=== PATIENT | female | born 1940 | race Caucasian/White ===

== ENCOUNTER 2019-08-09 11:35 | Inpatient (IN) | payer MEDICARE, MEDICAID, SELFPAY ==
--- NOTE | 2019-08-07 17:51 | PCM.HP.BLA ---
History and Physical Date of Admission: 08/09/19 HISTORY AND PHYSICAL ? Brisa Hall 1940 ? ? REFERRING PHYSICIAN: Mercedes Lee MD ? CHIEF COMPLAINT: pleurex discussion ? 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 Brisa underwent paracentesis earlier this week and the fluid has already recurred. Dr. Lee wished us to semi-urgently place a Pleurx catheter to manage her pleural effusion so the patient can start her palliative chemotherapy. ? The patient has a history of hypertension, coronary artery disease, she had a and stenting in November 2018 for which she is being treated medically. She has a history of congestive heart failure. Ejection fraction of 40%. She has obstructive sleep apnea chronic renal disease COPD and TIAs. She last took her aspirin and Plavix last night. The patient has significant bruising of her arms and legs. ? The patient and her family are concerned that she is going to become increasingly short of breath before the time for Pleurx catheter placement this coming Thursday. ? The patient has an order and has CPAP at home but she does not use this regularly because it makes her uncomfortable. She occasionally has to be admitted to the hospital for C Pap treatments when she has worsening shortness of breath/dyspnea. ? ? ? PAST?MEDICAL?HISTORY ? CKD (chronic kidney disease) ? ? COPD (chronic obstructive pulmonary disease) (HCC) ? ? Coronary artery disease ? ? Heart failure (HCC) ? ? Hyperlipidemia ? ? Hypertension ? ? JAYA (obstructive sleep apnea) ? ? Small cell lung cancer (HCC) ? ? TIA (transient ischemic attack) ? ? ? PAST?SURGICAL?HISTORY ? HYSTERECTOMY HX ? ? ? REMOVAL GALLBLADDER ? ? ? REMV CATARACT EXTRACAP,INSERT LENS Right 08/29/15 ? Cataract Extraction with PC IOL with growth removal lower lid ? ? ? CURRENT?MEDICATIONS ? mupirocin (BACTROBAN) 2% oint Use 0.5 g in the nose twice daily. 3 g 1 ? guaiFENesin (MUCINEX) 1,200 mg Ta12 Take 1 tablet by mouth every 12 hours. 60 tablet 2 ? ondansetron (ZOFRAN) 8 mg tablet Take 1 tablet by mouth every 8 hours as needed. 90 tablet 0 ? metoprolol succinate ER (TOPROL XL) 25 mg 24 hr tablet Take 1 tablet by mouth once daily. 30 tablet 2 ? senna-docusate (SENNA-S) 8.6-50 mg per tablet Take 1 tablet by mouth twice daily as needed for Constipation. 30 tablet 1 ? pantoprazole DR (PROTONIX) 20 mg tablet Take 20 mg by mouth once daily. ? ? ? ipratropium-albuterol (DUONEB) 0.5 mg-3 mg(2.5 mg base)/3 mL nebu Inhale 3 mL as instructed. ? ? ? atorvastatin (LIPITOR) 40 mg tablet once daily. ? ? ? DULoxetine (CYMBALTA) 30 mg capsule ? ALLERGIES: Codeine ? PERSONAL HISTORY: SOCIAL?HISTORY Social History Socioeconomic History Marital status: Single Spouse name: Not on file Number of children: Not on file Years of education: Not on file Highest education level: Not on file Occupational History Not on file Social Needs Financial resource strain: Not on file Food insecurity: Worry: Not on file Inability: Not on file Transportation needs: Medical: Not on file Non-medical: Not on file Tobacco Use Smoking status: Former Smoker Packs/day: 1.00 Years: 50.00 Pack years: 50 Types: Cigarettes Quit date: 04/26/2015 Years since quittin.2 Smokeless tobacco: Never Used Substance and Sexual Activity Alcohol use: Not Currently Drug use: Never Sexual activity: Not on file Lifestyle Physical activity: Days per week: Not on file Minutes per session: Not on file Stress: Not on file Relationships Social connections: Talks on phone: Not on file Gets together: Not on file Attends shinto service: Not on file Active member of club or organization: Not on file Attends meetings of clubs or organizations: Not on file Relationship status: Not on file Intimate partner violence: Fear of current or ex partner: Not on file Emotionally abused: Not on file Physically abused: Not on file Forced sexual activity: Not on file Other Topics Concerns: Not on file Social History Narrative Not on file ? FAMILY HISTORY: ? other (epilepsy) Mother ? ? Heart disease Sister ? ? Heart disease Brother ? ? COPD Sister ? ? Heart disease Sister ? ? Heart disease Brother ? ? other (Hep C) Brother ? ? No Ocular Disease No Family History ? ? ? REVIEW OF SYMPTOMS: The review of systems data was entered by the nurse and reviewed by me ? REVIEW OF SYSTEMS: General: The patient denies fatigue, denies weight loss, denies weight gain, denies feeling hot, and feelings of cold. Eyes: The patient denies glaucoma, denies eye injury/surgery, denies glasses or contacts. Ear/Nose/Throat: The patient denies allergies, denies hayfever, denies ear infections, and denies bloody noses. Cardiovascular: The patient denies chest pain, NOTES heart disease, denies high blood pressure, denies high cholesterol, and denies poor circulation. Respiratory: The patient denies tuberculosis, denies pneumonia, denies frequent cough, NOTES shortness of breath, and denies coughing up blood. Gastrointestinal: The patient denies difficulty swallowing, denies acid reflux, denies ulcers, denies jaundice/hepatitis, denies gallbladder problems, denies vomiting, denies black or tarry stools, denies hemorrhoids, denies bleeding from rectum, denies diverticulitis, denies constipation, denies diarrhea, denies loss of stool control, and denies hernias. Kidney/Bladder: The patient denies kidney stones, denies urine infections, and denies bloody urine. Skin: The patient denies a history of skin cancer, denies bleeding/changing moles, and denies a history of skin rash. Neurologic: The patient denies a history of epilepsy/convulsions, denies headaches, denies head/spinal injuries, and denies stroke/TIA. Psychiatric: The patient denies psychiatric medications, denies depression, and denies voices. Endocrine: The patient denies thyroid disorders, denies diabetes, and denies hormonal problems. Hematologic: The patient denies a history of bruising, denies bleeding, and denies anemia. Infections: The patient denies a history of measles and mumps, denies rheumatic fever, and denies sexually transmitted diseases. Musculoskeletal: The patient denies back pain/injury, denies back problems, denies sciatica, denies knee/foot trouble, denies arthritis, or denies gout. PHYSICAL EXAMINATION: ? General: The patient is 79 year old female, well nourished, well hydrated in no acute distress. The patient is oriented to time, place, and person. ? VITALS: Blood pressure 114/61, pulse 84, temperature 37.1 ?C (98.8 ?F), temperature source Temporal Artery, height 165.1 cm (5' 5), weight 69.9 kg (154 lb), SpO2 93 %. Body mass index is 25.63 kg/m?. ? HEENT: Normal cephalic, ataumatic, pupils are equally round, sclera are anicteric, mucous membranes are moist, oropharynx is clear. Neck has no masses, asymmetry or lymphadenopathy. Thyroid is unremarkable. ? Respiratory: Right lower lung field decreased to auscultation and percussion. Otherwise wheezes throughout. Normal respiratory excursion and pattern. ? Cardiac: Examination is regular rate and rhythm. ? Abdominal exam: Soft, nontender, with no palpable masses. No hepatosplenomegaly. No palpable hernias. ? Rectal exam: exam deferred ? Extremities: no clubbing, cyanosis or edema. No adenopathy. ? Other: ? ? LABORATORY VALUES: As Noted ? RADIOLOGIC STUDIES: As Noted ? IMPRESSION: Right small cell lung cancer,, recurrent right pleural effusion ? PLAN: Discussed with the patient and Dr. Lee that I will be out of town for 2 weeks but understand the urgency of catheter placement. I partner, Dr. Desai will plan to perform a tunnelled right pleural catheter or Pleurex catheter placement. Dr. Lee has also requested portacath placement for chemotherapy. The planned surgical procedure was discussed extensively with the patient. The risks, benefits, anticipated outcomes and possible complications were mentioned. My staff has also explained the procedure in understandable terms and the patient was given the option to take printed material concerning the planned procedure. The patient had the opportunity to ask questions concerning the planned procedure. The patient freely consents to the planned procedure. ? Given the patient's medical comorbidities but significant bruising. I feel of be optimal to wait until Thursday for pleural catheter placement. If the patient's shortness of breath worsens she should present to the hospital for support until the catheter can be safely placed. ? Anticipated Surgical Procedure/ CPT Code: 09362 - Insertion of Tunnelled Pleural Catheter - Right and 54296 - Ultrasound Guidance for Needle Placement Also requested by Dr. Lee, placement of portacath for chemotherapy. ? Anticipated Anesthetic: MAC with local ? Patient weight: Blood pressure 114/61, pulse 84, temperature 37.1 ?C (98.8 ?F), temperature source Temporal Artery, height 165.1 cm (5' 5), weight 69.9 kg (154 lb), SpO2 93 %. BMI: Body mass index is 25.63 kg/m?. ? Planned antibiotic: Ancef 2gm IVPB vaccines solutions specialist to OR ? SCDs needed - Yes ? Circulation Analyst Needed - No ? Diagnoses: (J90) Pleural effusion (primary encounter diagnosis) ? Jake Turcios MD
[2019-08-09] VITALS (22 sets, daily range): BP systolic 93–138; BP diastolic 49–85; PULSE 78–95; RESP 16–24; TEMP 36–36.7; O2SAT 90–100; BMI 25.6; BMI 26.8
[2019-08-09] MEDS: Cefazolin 2 GM in 0.9% Normal Saline 100 ML IV (08:06)
--- NOTE | 2019-08-09 09:36 | PCM.OPRPT ---
Report of Operation Date of Procedure: 08/09/19 Pre-Operative Diagnosis: metastatic lung cancer, need for IV access Post-Operative Diagnosis: same Surgery/Procedure Performed:: placement of permanent indwelling tunnelled catheter in the right subclavian vein with subcutaneous port and placement right sided PleurX catheter Description of Surgical Findings:: normal right subclavian vein anatomy to SVC, right pleural effusion tapping machine operator automatic: Tamia Wooten Type of Anesthesia:: Local MAC Anesthesiologist: Jacques Cid Specimen's removed: pleural effusion - right Estimated Blood Loss (mL): 10 ml Fluids Replaced: 1000 ml RL Description of Procedure: After informed consent was given, the patient was brought to the Operating Room. Appropriate time out protocol was followed. She was then placed in the supine position. IV conscious sedation was then administered by the anesthesia provider. After proper landmarks were ascertained, the skin at the upper right chest area was then infiltrated with 1% xylocaine with epinephrine. A needle trocar was then inserted into the right subclavian vein and there was good aspiration of venous blood. A wire was then threaded into the needle trocar and this was visualized under fluoroscopy to ensure that the wire was in the right subclavian vein. Once this was done, then the needle trocar was removed. A small skin dory was made with an 11 blade knife at the wire entrance site. The dilator with the introducer sheath attached was then placed over the wire into the right subclavian vein via the Seldinger technique and this was visualized under fluoroscopy. The dilator and sheath were in proper position as visualized by fluoroscopy. The wire and dilator were then removed. The catheter was then threaded into the introducer sheath and was positioned with its tip at the junction of the superior vena cava and the right atrium as visualized under fluoroscopy. The catheter was flushed with a heparin saline mixture prior to placement. A subcutaneous pocket was then created caudad to the catheter insertion site. A transverse skin incision was made after the skin and subcutaneous tissues were infiltrated with local anesthetic. Blunt dissection was then used to create a space large enough for placement of the subcutaneous port. Hemostasis was carefully controlled with electrocautery. The port was sutured to the subcutaneous fascia using vicryl suture at three sites. The catheter was then tunneled into the subcutaneous pocket. The excess catheter was transected. The catheter was then attached to the subcutaneous port using mail carrier and clerk?s guidelines. The port was then placed in the subcutaneous pocket and the sutures were ligated. The subdermal incisional sites were reapproximated with interrupted vicryl suture. The skin was reapproximated with monocryl suture in a subcuticular fashion. Cavilon and steristrips were used for reinforcement of the skin closure and a sterile opsite dressing was applied. The patient was placed in the slightly head up recumbent position. The patient?s right torso was then prepped with a separate surgical skin preparation and sterile surgical drapes were placed. The US transducer was brought into the sterile field. Real time US images were obtained to locate the pleural effusion. Landmarks were also determined. Sites were chosen for insertion of the catheter into the chest cavity and the exit site of the catheter and these were marked out on the patient's skin. The skin and subcutaneous tissues in and around the sites were then infiltrated with 1% xylocaine with epinephrine. A skin incision was then made with a 15 blade scalpel at both sites - < 1 cm. The needle trocar was then directed into the pleural cavity under US guidance and aspiration was done. Once there was good aspiration of pleural fluid (clear yellow) then the needle was removed and a wire was threaded through the catheter. The tunnelling device was used to bring the catheter via the exit site and out through the chest insertion site. It was placed so that the cuff was about 1 cm from the wound opening. The dilator was then threaded over the wire into the pleural cavity, then the dilator with the introducer sheath was threaded over the wire. The wire and dilator was then removed and finger placed over the introducer opening. There was excess catheter that was transected. The catheter was then inserted into the pleural cavity via the introducer sheath and placed so that the catheter openings were well beyond the entrance site. The catheter was sutured to the exit site using 3-0 nylon suture. The skin incisions were closed with subdermal 4-0 monocryl. The extension tubing with three way stop-cock was attached to the catheter and about 1100 ml of clear yellow fluid was removed from the left pleural cavity. The catheter site was then covered with a sterile dressing and a closing device was placed at the end of the pleural cavity. The patient tolerated the procedure well and was brought to the Recovery Room in stable condition. Grafts/Implants Used: [employer] lot [id number] - Complications none noted - Admit VTE Documentation VTE Present on Admission: Yes VTE Mechan Device Prophylaxis: SCD's
--- NOTE | 2019-08-09 10:08 | RAD_ITS ---
STUDY: X-RAY CHEST REASON FOR EXAM: Female, 79 years old. Port placement. TECHNIQUE: Single AP portable view of the chest. COMPARISON: None. FINDINGS: A right-sided jhon catheter has been placed. The tip is in the right atrium. There is evidence of an approximately 10-15% right pneumothorax. A catheter is seen overlying the right upper quadrant. Small right pleural effusion with underlying right basilar atelectasis. Normal size heart. Normal mediastinum and shahida. Normal visualized pulmonary arteries. Normal visualized aortic arch and descending thoracic aorta. Normal visualized thoracic spine. Normal visualized ribs, clavicles, and shoulders. There is no demonstrated abnormality of the visualized soft tissue structures of the upper abdomen. RAD/CXR for Line Placement IMPRESSION: 10-15% right pneumothorax. The tip of the portacatheter is in the right atrium. Small right pleural effusion with underlying basilar atelectasis. Electronically Signed: Kannan Hall, at 10:32 EDT , Service support ,
--- NOTE | 2019-08-09 11:23 | RAD_ITS ---
STUDY: X-RAY CHEST REASON FOR EXAM: Female, 79 years old. Chest tube placement for pneumothorax. TECHNIQUE: Single AP portable view of the chest. COMPARISON: Comparison is made with prior examination done earlier in the day at 10:13 AM. FINDINGS: A chest tube is seen with the tip in the lateral aspect of the right right upper quadrant/right lung base. Stable appearance of the right pneumothorax. The remainder the examination is unchanged. RAD/Chest 1 View (Portable) IMPRESSION: Stable appearance of the right pneumothorax. Electronically Signed: Kannan Hall, at 13:06 EDT , Service support ,
--- NOTE | 2019-08-09 12:43 | EKG12_ITS ---
Test Reason : PALPS Blood Pressure : / mmHG Vent. Rate : 082 BPM Atrial Rate : 082 BPM P-R Int : 188 ms QRS Dur : 116 ms QT Int : 376 ms P-R-T Axes : 031 -25 171 degrees QTc Int : 439 ms Normal sinus rhythm with occasional premature ectopic complexes Left bundle branch block Abnormal ECG No previous ECGs available Confirmed by RAYSHAWN AUGUSTINE, DEEP ([id number]), non linear editor TIFFANIE ROBISON ([id number]) on 08/15/2019 1:16:30 PM Referred By: Lucy Desai Confirmed By:DEEP TABARES MD
[2019-08-09] MEDS: HYDROcodone Bitartrate/Apap 5/325 Tablet PO ×2 (13:30→22:01)
--- NOTE | 2019-08-09 16:22 | PCM.PN.BLA ---
Progress Note Patient noted to have postoperative pneumothorax on CXR in PACU. PleurX catheter placed to 20 cm water suction pleural drainage system, repeat CXRs ordered Patient also complaint of chest pain EKG changes were noted Will admit patient for observation hospitalist service consulted for EKG changes (spoke to Dr. Kim) STROKE Vital Signs/Narrative: Vital Signs Temp Pulse Resp BP Pulse Ox 08/09/19 13:56 97.8 F 78 18 138/62 H 100 08/09/19 13:18 83
--- NOTE | 2019-08-09 16:30 | RAD_ITS ---
STUDY: X-RAY CHEST REASON FOR EXAM: Female, 79 years old. Pneumothorax. TECHNIQUE: Single AP portable view of the chest. COMPARISON: Comparison is made with prior examination done earlier today at 11:26 AM. FINDINGS: No right-sided pneumothorax is seen at this time. The remainder of the examination is unchanged. RAD/Chest 1 View (Portable) IMPRESSION: No pneumothorax is seen at this time. Electronically Signed: Kannan Hall, at 15:31 EDT , Service support ,
--- NOTE | 2019-08-09 17:02 | PN_ITS ---
Subjective: 39-year-old female presenting for a port placement because of her small cell lung cancer diagnosis. She underwent the procedure today and unfortunately postoperatively had a pneumothorax on chest x-ray and had a Pleurx catheter placed to manage the pneumothorax. At that time she started complaining of right-sided chest pain so an EKG was obtained that showed T wave inversions in the lateral leads and incomplete left bundle branch block. Unfortunately we had no previous records in our system of her and therefore she was admitted for a chest pain. Initial troponin was negative and we were able to get in touch with the primary care physician's office who was able to send over records. The left bundle branch block was there in the past though there was no mention of T wave inversions and I could not actually see the EKG image. Left-sided chest pain or pressure and denies any shortness of breath. She denied any chest pain with exertion prior to coming in for the procedure today. Vitals/I&O's: Vital Signs Temp Pulse Resp BP Pulse Ox 97.8 F 78 18 138/62 H 100 08/09/19 13:56 08/09/19 13:56 08/09/19 13:56 08/09/19 13:56 08/09/19 13:56 Oxygen Flow Rate (L/min) 2 Oxygen Delivery Method Nasal Cannula Weight: 161 lb 4.8 oz Body Mass Index (BMI) 26.8 Intake and Output for Last 24 Hours 08/07/19 08/08/19 08/09/19 23:59 23:59 23:59 Output Total 1999 Balance -1999 General: Alert, Oriented x3, Cooperative, No apparent distress HEENT: Atraumatic, PERRLA, EOMI, Normocephalic Oral: Moist Mucosa Neck: Supple, No JVD Lungs: Clear to auscultation, Normal air movement, No rhonchi, No wheeze, No rales, - - Port is present on the right side of the chest as is the Pleurx catheter Cardiovascular: Regular rate, Regular Rhythm, Normal S1, Normal S2, No murmurs Abdomen: Soft, Non Tender, Non-Distended, No Hepato-splenomegaly Extremities: No edema, Capillary Refill Less than 3 Seconds Skin: No rashes, No breakdown Musculoskeletal: Tenderness - To the right foot from a likely gout flare Neurological: Neuro grossly intact, Sensory exam intact to light touch and pain Psych/Mental Status: Normal Affect, Appropriate Laboratory Results 08/09/19 11:42: Troponin I < 0.015 08/09/19 14:53: Troponin I < 0.015 Current Medications Hydrocodone Bitart/Acetaminophen ([place] 5mg-325mg) 1 tablet PO Q4H PRN PRN PRN Reason: Pain Score 1-5/10 Last Admin: 08/09/19 13:30 Dose: 1 tablet Documented by: Atorvastatin Calcium (Lipitor) 40 mg PO QHS JULIO Duloxetine HCl (Cymbalta) 30 mg PO DAILY ON LICENSE OF [facility] Lactated Ringer's () 1,000 mls @ 75 mls/hr IV .[id number] JULIO Metoprolol Succinate (Toprol Xl (Beta Luis)) 25 mg PO DAILY JULIO Morphine Sulfate () 4 mg IV Q1H PRN PRN PRN Reason: Pain Score 6-10/10 Ondansetron HCl (Zofran) 4 mg IV Q8H PRN PRN PRN Reason: NAUSEA/VOMITING Pantoprazole Sodium (Protonix) 20 mg PO DAILY ON LICENSE OF [facility] Sodium Chloride () 250 ml IV UD PRN PRN Reason: Hypotension STROKE Vital Signs/Narrative: Vital Signs Temp Pulse Resp BP Pulse Ox 08/09/19 13:56 97.8 F 78 18 138/62 H 100 08/09/19 13:18 83 Medical Necessity - Tobacco Use Smoking Status: Former smoker Assessment/Plan 1. Chest pain with EKG changes/CAD status post NSTEMI in November 2018/chronic systolic heart failure/HTN/HLD -Based on the description from the EKG sent over from the PCP there is no significant change in her baseline EKG. She is not complaining of left-sided chest pain or significant shortness of breath -We will obtain serial troponins and if there is no elevation, she is likely stable for discharge from a cardiac standpoint -We will hold her aspirin and Plavix until cleared by surgery to continue -Can restart her Lipitor, Lasix, isosorbide mononitrate, lisinopril, metoprolol and Aldactone 2. COPD/small cell lung cancer/right-sided pneumothorax -Currently not in a COPD exacerbation and can resume her home inhalers -She is having her chemotherapy done at [facility] and she has had treatment with carboplatin and etoposide -She underwent the port placement today with an unfortunate resultant pneumothorax, there is a Pleur-evac in place -Management per primary for her port and pneumothorax -She is on home oxygen 3. History of a TIA/CVA -Continue with aspirin and Plavix when okay by surgery -Continue with statin 4. CKD 3 -Baseline creatinine is 1.5 -Monitor 5. Gout -She has been on prednisone previously but she states that lidocaine patches significantly help -We will provide lidocaine patch for pain and if necessary start prednisone -The right foot did not appear swollen, red, or significantly tender on palpation 6. Anxiety/depression -Continue with Xanax as needed -Stable DVT: SCDs Code Visit OBSV E&M: 91607 Subsequent observation care L3
[2019-08-09] MEDS: Furosemide 20 MG Tablet PO (18:41)
[2019-08-09] MEDS: Lactated Ringers 1,000 ML 75 ML IV (18:42)
[2019-08-09] MEDS: Lidocaine 5% Patch 1 PATCH TOPICAL (21:57)
[2019-08-09] MEDS: Atorvastatin Calcium 40 MG Tablet PO (21:57)
[2019-08-09] MEDS: Isosorbide Mononitrate 60 MG Tablet PO (21:57)
[2019-08-09] MEDS: Albuterol 2.5 MG/3 ML VIAL.NEB. INHALATION (22:08)
[2019-08-10] VITALS (22 sets, daily range): BP systolic 94–123; BP diastolic 41–73; PULSE 50–99; RESP 15–20; TEMP 36.7–37.2; O2SAT 92–96
[2019-08-10] MEDS: Morphine 4 MG/ML Syringe IV (00:30)
[2019-08-10] MEDS: HYDROcodone Bitartrate/Apap 5/325 Tablet PO ×4 (02:09→16:57)
[2019-08-10 06:06] LABS: Absolute Lymphocyte Count 1.55 X10^3/uL (0.83-4.51); Absolute Neutrophil Count 7.4 X10^3/uL (2.0-7.7); Basophil# 0.05 X10^3/uL; Basophil% 0.5 % (0-1); Eosinophil# 0.03 X10^3/uL; Eosinophils% 0.3 % (0-5); Hemoglobin 6.9 g/dL (12.0-15.0); Lymphocyte # 1.55 X10^3/ul (4.0); Lymphocyte % 14.8 % (19-41); Mean Corp Hgb Conc 31.4 g/dL (32-36); Mean Corpuscular Hgb 30.3 pg (27.0-32.0); Mean Corpuscular Volume 96.5 fL (81-99); Mean Platelet Vol. 8.5 fl (6.2-12.0); Monocyte# 0.92 X10^3/uL; Monocyte% 8.8 % (0-10); NRBC Flagged by Analyzer 0 % (0-5); Neutrophil # 7.38 X10^3/uL (2.7-7.7); Neutrophil % 70.6 % (47-70); Platelet Count 428 K/mm3 (150-450); RBC Distribution Width CV 15.6 % (11.6-14.6); RBC Distribution Width SD 53.2 fl (35.1-43.9); Red Blood Count 2.28 M/mm3 (4.2-5.4); White Blood Count 10.5 K/mm3 (4.4-11.0)
[2019-08-10 06:34] LABS: Anion Gap 4 (5-15); BUN 16 mg/dL (7-18); BUN/Creat Ratio 16.6 RATIO (10-20); Calcium,Total 8.2 mg/dL (8.5-10.1); Chloride 106 mmol/L (98-107); Creatinine, Serum 0.96 mg/dL (0.55-1.02); EST Glomerular Filtration Rate 60 mL/min (>60); Est Glom Filt Rate - Afr Amer 72 mL/min (>60); Estimated Creatinine Clearance 44.16 ml/min; Glucose 115 mg/dL (74-106); Sodium Level 140 mmol/L (136-145)
[2019-08-10 07:00] LABS: Hemoglobin 6.9 g/dL (12.0-15.0)
[2019-08-10] MEDS: Ipratropium/Albuterol Sulfate 3 ML AMPUL.NEB INHALATION (07:14)
--- NOTE | 2019-08-10 07:55 | RAD_ITS ---
STUDY: X-RAY CHEST REASON FOR EXAM: Female, 79 years old. Pneumothorax follow-up TECHNIQUE: Single AP portable view of the chest. COMPARISON: Prior day FINDINGS: Again, no right-sided pneumothorax is seen at this time. Right-sided Port-A-Cath tip remains in the right atrium. Coiled catheter remains over the right upper quadrant of the abdomen. The heart is likely moderately enlarged. Stable appearing right basilar opacity Visualized osseous structures are intact. RAD/Chest 1 View (Portable) IMPRESSION: No pneumothorax is seen at this time. No significant interval change from prior including a stable appearing right basilar opacity which may indicate atelectasis, effusion, and/or pneumonia as clinically indicated. Electronically Signed: [place], at 12:46 EDT Tel , Service support ,
--- NOTE | 2019-08-10 09:19 | PCM.PN.SRG ---
Subjective: Patient had pain last night, will prescribed pain medications for smaller intervals - she can have norco every 3-4 hours suspect pain from pleurX catheter rubbing against pleura Denies abdominal pain Hgb decreased - will be transfused 2 uPRBC, suspect from anemia of chronic disease, dilutional, etc. - Physical Exam Vitals/I&O's: Vital Signs Temp Pulse Resp BP Pulse Ox 98.0 F 53 L 16 110/42 L 94 08/10/19 08:44 08/10/19 09:11 08/10/19 08:44 08/10/19 08:44 08/10/19 09:11 Oxygen Flow Rate (L/min) 4 Oxygen Delivery Method Nasal Cannula Weight: 73.164 kg Body Mass Index (BMI) 26.8 Intake and Output for Last 24 Hours 08/08/19 08/09/19 08/10/19 23:59 23:59 23:59 Intake Total 1116.25 / 1116.25 100 / 100 Output Total 2295 / 2295 485 / 485 Balance -1178.75 / -1178.75 -385 / -385 General: Alert, Oriented x3 HEENT: Atraumatic Oral: Moist Mucosa Neck: Supple Lungs: Normal air movement Abdomen: Bowel Sounds Present, Soft, Non Tender Laboratory Results 08/09/19 11:42: Troponin I < 0.015 08/09/19 14:53: Troponin I < 0.015 08/09/19 17:32: Troponin I < 0.015 08/10/19 05:50: WBC 10.5, RBC 2.28 L, Hgb 6.9 L, Hct 22.0 L, MCV 96.5, MCH 30.3, MCHC 31.4 L, RDW Std Deviation 53.2 H, RDW Coeff of Samara 15.6 H, Plt Count 428, MPV 8.5, Immature Gran % (Auto) 5.000 H, Neut % (Auto) 70.6 H, Lymph % (Auto) 14.8 L, [place] % (Auto) 8.8, Eos % (Auto) 0.3, Baso % (Auto) 0.5, Absolute Neuts (auto) 7.4, Absolute Lymphs (auto) 1.55, Nucleated RBC % 0 08/10/19 05:50: Sodium 140, Potassium 4.0, Chloride 106, Carbon Dioxide 30.0, Anion Gap 4 L, BUN 16, Creatinine 0.96, Estim Creat Clear Calc 44.16, Est GFR (MDRD) Af Amer 72, Est GFR (MDRD) Non-Af 60, BUN/Creatinine Ratio 16.6, Glucose 115 H, Calcium 8.2 L 08/10/19 06:46: Hgb 6.9 L 08/10/19 06:46: Blood Type O NEGATIVE, Antibody Screen NEGATIVE, Crossmatch See Detail Current Medications Hydrocodone Bitart/Acetaminophen ([place] 5mg-325mg) 1 tablet PO Q4H PRN PRN PRN Reason: Pain Score 1-5/10 Last Admin: 08/10/19 06:18 Dose: 1 tablet Documented by: Albuterol Sulfate (Ventolin Aerosols) 2.5 mg INHALATION Q4H PRN PRN Reason: SOB &/OR WHEEZING Last Admin: 08/09/19 22:08 Dose: 2.5 mg Documented by: Albuterol/Ipratropium (Duoneb) 3 ml INHALATION DAILY.RT [facility] Last Admin: 08/10/19 07:14 Dose: 3 ml Documented by: Alprazolam (Xanax) 0.25 mg PO Q8H PRN PRN Reason: ANXIETY Aspirin (Aspirin, Baby) 81 mg PO DAILY@0800 [facility] Atorvastatin Calcium (Lipitor) 40 mg PO QHS [facility] Last Admin: 08/09/19 21:57 Dose: 40 mg Documented by: Duloxetine HCl (Cymbalta) 30 mg PO DAILY [facility] Furosemide (Lasix) 20 mg PO BIDLX [facility] Last Admin: 08/09/19 18:41 Dose: 20 mg Documented by: Guaifenesin (Mucinex) 1,200 mg PO BID PRN PRN Reason: COUGH AND CONGESTION Guaifenesin (Robitussin) 5 ml PO Q4H PRN PRN PRN Reason: COUGH Lactated Ringer's () 1,000 mls @ 75 mls/hr IV .[id number] [facility] Last Infusion: 08/09/19 23:58 Dose: 75 mls/hr Documented by: Isosorbide Mononitrate (Imdur) 60 mg PO BID [facility] Last Admin: 08/09/19 21:57 Dose: 60 mg Documented by: Lidocaine (Lidoderm Patch) 1 patch TOPICAL DAILY@2200 [facility]; Protocol Last Admin: 08/09/19 21:57 Dose: 1 patch Documented by: Lisinopril (Zestril) 20 mg PO DAILY [facility] Metoprolol Succinate (Toprol Xl (Beta Luis)) 25 mg PO DAILY [facility] Morphine Sulfate () 4 mg IV Q1H PRN PRN PRN Reason: Pain Score 6-10/10 Last Admin: 08/10/19 00:30 Dose: 4 mg Documented by: Ondansetron HCl (Zofran) 4 mg IV Q8H PRN PRN PRN Reason: NAUSEA/VOMITING Pantoprazole Sodium (Protonix) 20 mg PO DAILY [facility] Simethicone (Mylicon) 80 mg PO DAILY PRN PRN Reason: Gas Sodium Chloride () 250 ml IV UD PRN PRN Reason: Hypotension Spironolactone (Aldactone) 25 mg PO DAILY [facility] Medical Necessity - Tobacco Use Smoking Status: Former smoker Assessment/Plan Impression: s/p placement of right sided portacath and right pleurX catheter Plan: transfuse 2 u PRBC, appreciate hospitalist's care of this patient CXR this morning shows no pneumothorax off suction, will cap of PleurX catheter Patient can be discharged after blood transfusions
--- NOTE | 2019-08-10 09:27 | PCM.DC.GS ---
Discharge Diet: No Restrictions Discharge Activity: Return to Normal Activity, May not drive while taking narcotic pain medications. Call your doctor if your incision/area has: Continuous Slow Oozing, Foul Smelling Discharge Additional Dressing/Incision Instructions:: Leave all dressings in place. Sponge bathe only Allergies/Adverse Reactions: Allergies codeine Allergy (Verified 08/09/19 07:05) Unknown Medications to take at Discharge ALPRAZolam [Xanax] 0.25 mg PO Q8H PRN 08/09/19 Acetaminophen [Pain Reliever] 650 mg PO Q4H PRN PRN 08/09/19 Albuterol Inhaler [Ventolin Hfa (SP)] 2 puff INHALATION DAILY PRN 08/09/19 Aspirin [Aspirin, Baby] 81 mg PO DAILY@0800 08/09/19 Atorvastatin Calcium [Lipitor] 40 mg PO QHS 08/09/19 Clopidogrel Bisulfate [Plavix] 75 mg PO DAILY 08/09/19 Furosemide [Lasix] 20 mg PO BID 08/09/19 Guaifenesin [Mucus ER] 1,200 mg PO BID PRN 08/09/19 Guaifenesin [Robitussin] 5 ml PO Q4H PRN PRN 08/09/19 Ipratropium/Albuterol Sulfate [Duoneb] 3 ml INHALATION DAILY 08/09/19 Isosorbide Mononitrate [Imdur] 60 mg PO BID 08/09/19 Levalbuterol HCl [Xopenex Concentrate] 1.25 mg IH Q2H PRN 08/09/19 Lisinopril 20 mg PO DAILY 08/09/19 Pantoprazole Sodium [Protonix] 20 mg PO DAILY 08/09/19 Simethicone [Gas Relief 80] 80 mg PO DAILY PRN 08/09/19 Spironolactone 25 mg PO DAILY 08/09/19 traMADol [Ultram (G)] 50 mg PO BID PRN PRN 08/09/19 Hydrocodone/Acetaminophen [[place] 5-325 Tablet] 1 ea PO Q4H PRN PRN 7 Days #30 tab 08/10/19 Metoprolol(XL)Succ [Toprol Xl (Beta Luis)] 25 mg PO DAILY 08/10/19 The following prescriptions were given: Hydrocodone/Acetaminophen [[place] 5-325 Tablet] 1 ea PO Q4H PRN PRN 7 Days #30 tab PRN Reason: Pain Score 4-10/10 Prescription Printed Primary Care Physician: Dileep Paez [Primary Care Provider] - Test Results: Test results from this visit will be discussed in further detail at your follow-up appointment, if applicable. Please Follow Up With: Lucy Desai MD - call When: to be seen in a week, please call for date and time, thank you
[2019-08-10] MEDS: Aspirin 81 MG TAB.CHEW PO (09:35)
[2019-08-10] MEDS: DULoxetine Hcl 30 MG Capsule PO (09:35)
[2019-08-10] MEDS: Isosorbide Mononitrate 60 MG Tablet PO (09:35)
[2019-08-10] MEDS: Pantoprazole Sodium 20 MG Tablet PO (09:35)
[2019-08-10] MEDS: Metoprolol(XL)Succ 25 MG Tablet PO (09:35)
[2019-08-10] MEDS: Furosemide 20 MG Tablet PO ×2 (09:35→16:58)
[2019-08-10] MEDS: Spironolactone 25 MG Tablet PO (09:36)
[2019-08-10] MEDS: 0.9% Saline Lock 10 ML Syringe IV ×2 (10:15→14:54)
--- NOTE | 2019-08-10 11:23 | CASEMGMT ---
RN KAMILAH assessment: Face to Face with patient for initial transition planning/care coordination assessment. RN CM introduced self and role at [facility], pt voices understanding and consents to assessment at this time. Pt is lying in bed in no distress at this time. Pt is A/Ox4 at this time and answers all questions appropriately at this time. Care providers, pharmacy, and demographics verified/updated at this time. Pt here for port placement and then developed right chest pain. Pt then with 6.9 Hgb and 2 units transfusion. PCP: [facility] Specialists: [facility]; [facility] in [place] Preferred Pharmacy: [facility] in [place] Insurance: MCR A/B, KHANH Prescription Benefit: KHANH Living Will/HPOA: Pt states has LW/HPOA and is aware that they are not currently on file at [facility] at this time. Pt states that Corrie Garcia, daughter, is HPOA. LNOK: Corrie Garcia, daughter/HPOA Living Arrangements: Pt lives with daughter and then her HPOA/daughter, Corrie, also lives next door. Pt states family has been assisting with ADL's for the last couple weeks. Transportation: Pt states family drives and states no transportation concerns at this time. DME/HHC: Pt states has the following DME: cane, walker, grab bars, shower chair, nebulizer cpap, and 2liters home oxygen thru [facility]. Pt/family state no need for any further DME at this time. Per family, pt has /[facility] for RN and PT currently set up. Call to /[facility] to notify of pt admission and that they will be notified when pt discharged, voice understanding. Per [facility], pt is current with RN and PT was scheduled to start tomorrow. Resumption of care order placed and janitorial assistant aware to notify them if pt does discharge today. Pt states has been to [facility] in the past. Pt states no concerns with going home at time of discharge. Pt is retired. Pt states does not smoke or drink ETOH. Pt states no further concerns/needs at this time. CM to follow PT/OT and for any further discharge planning/needs. Advised pt/family to ask for CM if any further questions/concerns/needs arise, voice understanding. Pt Goal: Home w/ [facility] Plan: Home w/ [facility] Cooper RN CM
--- NOTE | 2019-08-10 12:25 | PN_ITS ---
Subjective: Feels better today with the lidocaine patch. Would like to go home after her blood transfusions Vitals/I&O's: Vital Signs Temp Pulse Resp BP Pulse Ox 98.9 F 83 18 105/41 L 94 08/10/19 11:30 08/10/19 11:30 08/10/19 11:30 08/10/19 11:30 08/10/19 11:30 Oxygen Flow Rate (L/min) 4 Oxygen Delivery Method Nasal Cannula Weight: 161 lb 4.8 oz Body Mass Index (BMI) 26.8 Intake and Output for Last 24 Hours 08/08/19 08/09/19 08/10/19 23:59 23:59 23:59 Intake Total 1116.25 / 1116.25 1053.75 / 1053.75 Output Total 2295 / 2295 1485 / 1485 Balance -1178.75 / -1178.75 -431.25 / -431.25 General: Alert, Oriented x3, Cooperative, No apparent distress HEENT: Atraumatic, PERRLA, EOMI, Normocephalic Oral: Moist Mucosa Neck: Supple, No JVD Lungs: Clear to auscultation, Normal air movement, No rhonchi, No wheeze, No rales, - - Port is present on the right side of the chest as is the Pleurx catheter Cardiovascular: Regular rate, Regular Rhythm, Normal S1, Normal S2, No murmurs Abdomen: Soft, Non Tender, Non-Distended, No Hepato-splenomegaly Extremities: No edema, Capillary Refill Less than 3 Seconds Skin: No rashes, No breakdown Musculoskeletal: Tenderness - To the right foot from a likely gout flare Neurological: Neuro grossly intact, Sensory exam intact to light touch and pain Psych/Mental Status: Normal Affect, Appropriate Laboratory Results 08/09/19 14:53: Troponin I < 0.015 08/09/19 17:32: Troponin I < 0.015 08/10/19 05:50: WBC 10.5, RBC 2.28 L, Hgb 6.9 L, Hct 22.0 L, MCV 96.5, MCH 30.3, MCHC 31.4 L, RDW Std Deviation 53.2 H, RDW Coeff of Samara 15.6 H, Plt Count 428, MPV 8.5, Immature Gran % (Auto) 5.000 H, Neut % (Auto) 70.6 H, Lymph % (Auto) 14.8 L, [place] % (Auto) 8.8, Eos % (Auto) 0.3, Baso % (Auto) 0.5, Absolute Neuts (auto) 7.4, Absolute Lymphs (auto) 1.55, Nucleated RBC % 0 08/10/19 05:50: Sodium 140, Potassium 4.0, Chloride 106, Carbon Dioxide 30.0, Anion Gap 4 L, BUN 16, Creatinine 0.96, Estim Creat Clear Calc 44.16, Est GFR (MDRD) Af Amer 72, Est GFR (MDRD) Non-Af 60, BUN/Creatinine Ratio 16.6, Glucose 115 H, Calcium 8.2 L 08/10/19 06:46: Hgb 6.9 L 08/10/19 06:46: Blood Type O NEGATIVE, Antibody Screen NEGATIVE, Crossmatch See Detail Current Medications Hydrocodone Bitart/Acetaminophen ([place] 5mg-325mg) 1 tablet PO Q4H PRN PRN PRN Reason: Pain Score 1-5/10 Last Admin: 08/10/19 06:18 Dose: 1 tablet Documented by: Albuterol Sulfate (Ventolin Aerosols) 2.5 mg INHALATION Q4H PRN PRN Reason: SOB &/OR WHEEZING Last Admin: 08/09/19 22:08 Dose: 2.5 mg Documented by: Albuterol/Ipratropium (Duoneb) 3 ml INHALATION DAILY.RT [facility] Last Admin: 08/10/19 07:14 Dose: 3 ml Documented by: Alprazolam (Xanax) 0.25 mg PO Q8H PRN PRN Reason: ANXIETY Aspirin (Aspirin, Baby) 81 mg PO DAILY@0800 [facility] Last Admin: 08/10/19 09:35 Dose: 81 mg Documented by: Atorvastatin Calcium (Lipitor) 40 mg PO QHS [facility] Last Admin: 08/09/19 21:57 Dose: 40 mg Documented by: Duloxetine HCl (Cymbalta) 30 mg PO DAILY [facility] Last Admin: 08/10/19 09:35 Dose: 30 mg Documented by: Furosemide (Lasix) 20 mg PO BIDLX [facility] Last Admin: 08/10/19 09:35 Dose: 20 mg Documented by: Guaifenesin (Mucinex) 1,200 mg PO BID PRN PRN Reason: COUGH AND CONGESTION Guaifenesin (Robitussin) 5 ml PO Q4H PRN PRN PRN Reason: COUGH Lactated Ringer's () 1,000 mls @ 75 mls/hr IV .[id number] [facility] Last Admin: 08/10/19 11:24 Dose: Not Given Documented by: Sodium Chloride () 250 mls @ 15 mls/hr IV .[id number] PRN PRN Reason: Saline Flush Isosorbide Mononitrate (Imdur) 60 mg PO BID [facility] Last Admin: 08/10/19 09:35 Dose: 60 mg Documented by: Lidocaine (Lidoderm Patch) 1 patch TOPICAL DAILY@2200 [facility]; Protocol Last Admin: 08/09/19 21:57 Dose: 1 patch Documented by: Lisinopril (Zestril) 20 mg PO DAILY [facility] Last Admin: 08/10/19 11:37 Dose: Not Given Documented by: Metoprolol Succinate (Toprol Xl (Beta Luis)) 25 mg PO DAILY [facility] Last Admin: 08/10/19 09:35 Dose: 25 mg Documented by: Morphine Sulfate () 4 mg IV Q1H PRN PRN PRN Reason: Pain Score 6-10/10 Last Admin: 08/10/19 00:30 Dose: 4 mg Documented by: Ondansetron HCl (Zofran) 4 mg IV Q8H PRN PRN PRN Reason: NAUSEA/VOMITING Pantoprazole Sodium (Protonix) 20 mg PO DAILY [facility] Last Admin: 08/10/19 09:35 Dose: 20 mg Documented by: Simethicone (Mylicon) 80 mg PO DAILY PRN PRN Reason: Gas Sodium Chloride () 250 ml IV UD PRN PRN Reason: Hypotension Sodium Chloride () 10 - 40 ml IV UD PRN PRN Reason: SALINE FLUSH Last Admin: 08/10/19 10:15 Dose: 10 ml Documented by: Spironolactone (Aldactone) 25 mg PO DAILY [facility] Last Admin: 08/10/19 09:36 Dose: 25 mg Documented by: STROKE Vital Signs/Narrative: Vital Signs Temp Pulse Resp BP Pulse Ox 08/10/19 11:30 98.9 F 83 18 105/41 L 94 08/10/19 10:30 98.4 F 85 16 103/60 94 08/10/19 10:15 98.2 F 93 15 112/58 L 94 08/10/19 09:35 88 08/10/19 09:11 88 94 08/10/19 08:44 98.0 F 88 16 110/42 L 94 Medical Necessity - Tobacco Use Smoking Status: Former smoker Assessment/Plan 1. Chest pain with EKG changes/CAD status post NSTEMI in November 2018/chronic systolic heart failure/HTN/HLD -Based on the description from the EKG sent over from the PCP there is no significant change in her baseline EKG. She is not complaining of left-sided chest pain or significant shortness of breath -We will obtain serial troponins and if there is no elevation, she is likely stable for discharge from a cardiac standpoint -We will hold her aspirin and Plavix until cleared by surgery to continue -Can restart her Lipitor, Lasix, isosorbide mononitrate, lisinopril, metoprolol and Aldactone 2. COPD/small cell lung cancer/right-sided pneumothorax/Anemia unspecified -Currently not in a COPD exacerbation and can resume her home inhalers -She is having her chemotherapy done at [facility] and she has had олег atment with carboplatin and etoposide -She underwent the port placement today with an unfortunate resultant pneumothorax, there is a Pleur-evac in place -Management per primary for her port and pneumothorax -She is on home oxygen 2-4 L NC -Hgb today was 6.9, will obtain a UA and stool sample if possible, though she has not noticed any dark stool. -Transfuse 2 units PRBC and continue with her home BID lasix dosing, probably related to her chemo earlier this month -May need to give extra lasix if she becomes SOB with the transfusions 3. History of a TIA/CVA -Continue with aspirin and Plavix when okay by surgery -Continue with statin 4. CKD 3 -Baseline creatinine is 1.5 -Monitor, today 0.96 5. Gout -She has been on prednisone previously but she states that lidocaine patches significantly help -We will provide lidocaine patch for pain and if necessary start prednisone -The right foot did not appear swollen, red, or significantly tender on palpation 6. Anxiety/depression -Continue with Xanax as needed -Stable DVT: SCDs Code Visit Inpatient E&M: 24429 Subs Hosp L2
[2019-08-10 13:10] LABS: Mucous, Urine 0 SEEN /hpf (<or=2+); Red Blood Cells-Urine 0 SEEN /hpf (0-5)
[2019-08-10] MEDS: Albuterol 2.5 MG/3 ML VIAL.NEB. INHALATION (13:12)
--- NOTE | 2019-08-10 13:24 | NURSING ---
Read and reviewed SN documentation
[2019-08-10 13:30] LABS: Color, Urine Yellow (Yellow); Glucose, Dipstick Normal (Normal); Ketone-Dipstick Negative (Negative); Leukocyte Esterase-Dipstick Negative /ul (Negative); Nitrite-Dipstick Negative (Negative); Occult Blood-Urine Negative /ul (Negative); Protein-Dipstick Negative (Negative); Specific Gravity, Urine 1.015 (1.002-1.030); Urine Bilirubin Dipstick Negative (Negative); Urine Clarity Clear (Clear); Urine Urobilinogen Normal (Normal)
[2019-08-10 13:40] LABS: Bacteria 2+ /hpf (None Seen); Calcium Oxalate Crystals Ur 1+ /hpf (<or=2+); Squamous Epithelial Cells - UA 5-10 SEEN /hpf (5-10); White Blood Cells 0-5 SEEN /hpf (0-5)
--- NOTE | 2019-08-10 14:41 | PHA.DC.MC ---
Pharmacy Service has performed discharge medication reconciliation and counseling for this patient. 1. HYDROCODONE/ACETAMINOPHEN 5/325MG 1 TABLET PO Q4H PRN PAIN X 7 DAYS The patient's discharge medication list was reviewed for discrepancies and discrepancies were resolved. Home Medications ALPRAZolam [Xanax] 0.25 mg PO Q8H PRN 08/09/19 Acetaminophen [Pain Reliever] 650 mg PO Q4H PRN PRN 08/09/19 Albuterol Inhaler [Ventolin Hfa (SP)] 2 puff INHALATION DAILY PRN 08/09/19 Aspirin [Aspirin, Baby] 81 mg PO DAILY@0800 08/09/19 Atorvastatin Calcium [Lipitor] 40 mg PO QHS 08/09/19 Clopidogrel Bisulfate [Plavix] 75 mg PO DAILY 08/09/19 Furosemide [Lasix] 20 mg PO BID 08/09/19 Guaifenesin [Mucus ER] 1,200 mg PO BID PRN 08/09/19 Guaifenesin [Robitussin] 5 ml PO Q4H PRN PRN 08/09/19 Ipratropium/Albuterol Sulfate [Duoneb] 3 ml INHALATION DAILY 08/09/19 Isosorbide Mononitrate [Imdur] 60 mg PO BID 08/09/19 Levalbuterol HCl [Xopenex Concentrate] 1.25 mg IH Q2H PRN 08/09/19 Lisinopril 20 mg PO DAILY 08/09/19 Pantoprazole Sodium [Protonix] 20 mg PO DAILY 08/09/19 Simethicone [Gas Relief 80] 80 mg PO DAILY PRN 08/09/19 Spironolactone 25 mg PO DAILY 08/09/19 traMADol [Ultram (G)] 50 mg PO BID PRN PRN 08/09/19 Hydrocodone/Acetaminophen [[place] 5-325 Tablet] 1 ea PO Q4H PRN PRN 7 Days #30 tab 08/10/19 Metoprolol(XL)Succ [Toprol Xl (Beta Luis)] 25 mg PO DAILY 08/10/19 The patient was counseled on the following discharge medications and changes in medications for homegoing were reviewed. The Reason for Use, instructions for use, and potential side effects were reviewed for all new medications. The patient's questions regarding all of their medications were answered. The patient was able to verbally demonstrate an understanding of their discharge medications.
[2019-08-10] MEDS: Lidocaine 5% Patch 1 PATCH TOPICAL (16:58)
--- NOTE | 2019-08-10 17:39 | PCA ---
Spoke with Toshia at [facility] call answering service, . Notified her of patient leaving and she stated she would get the call sent out.
--- NOTE | 2019-08-11 09:03 | CASEMGMT ---
Clinicals with [facility] order and d/c instructions faxed to [facility] at this time. Per Carol, PCU diesel scoop operator, she did notify [facility] that pt was being discharged last pm. Cooper CHAMBERS CM
== END 2019-08-10 17:37 | disposition home or self-care (01) | DRG 982 ==
LOC: SDC 12:52 → PCU 08-10 07:13
PROVIDERS: Anesthesiology; Family Medicine; Admitting Provider Surgery; Family Provider Internal Medicine; PCP Internal Medicine; Referring Provider Surgery; Visit Provider Surgery
PROC: (CPT 32550; principal; 2019-08-09 07:15)
DX: J95.811 Postprocedural pneumothorax (principal); C34.91 Malignant neoplasm of unspecified part of right bronchus or lung; I50.22 Chronic systolic (congestive) heart failure; I13.0 Hypertensive heart and chronic kidney disease with heart failure and stage 1 through stage 4 chronic kidney disease, or unspecified chronic kidney disease; I25.10 Atherosclerotic heart disease of native coronary artery without angina pectoris; G47.33 Obstructive sleep apnea (adult) (pediatric); J44.9 Chronic obstructive pulmonary disease, unspecified; Y84.8 Other medical procedures as the cause of abnormal reaction of the patient, or of later complication, without mention of misadventure at the time of the procedure; N18.3 Chronic kidney disease, stage 3 (moderate); M10.9 Gout, unspecified; D63.8 Anemia in other chronic diseases classified elsewhere; I25.2 Old myocardial infarction; Z79.02 Long term (current) use of antithrombotics/antiplatelets; Z95.5 Presence of coronary angioplasty implant and graft; Z86.73 Personal history of transient ischemic attack (TIA), and cerebral infarction without residual deficits; Z87.891 Personal history of nicotine dependence; Z79.82 Long term (current) use of aspirin
CPT/HCPCS: 36415; 71045; 77001; 80048; 81001; 84484; 85018; 85025; 86850; 86900; 86901; 86920; 86922; 93005; 94640; J7040; J7120; P9016; A4216; C1729; C1788; J2405